=== PATIENT | female | born 1985 | race African-American/Black ===

== ENCOUNTER 2017-01-21 20:52 | Emergency (ER) | payer OTHER ==
[~2017-01-21 20:52] MED LIST: ACETAMINOPHEN PO; AMOXICILLIN PO; FLEXERIL PO; FLEXERIL10 MG PO; KEFLEX PO; KETOPROFEN PO; ULTRAM PO
== END 2017-01-21 21:05 | disposition home or self-care (01) ==
LOC: CED 20:52
DX: Z53.21 Procedure and treatment not carried out due to patient leaving prior to being seen by health care provider (principal)
CPT/HCPCS: J3010